=== PATIENT | female | born 1965 | race Caucasian/White ===

== ENCOUNTER → 2019-12-10 12:11 | Outpatient (CLI) | payer OTHER, SELFPAY | LOC: LABSPEC 12:16 | PROVIDERS: Referring Provider Ophthalmology; Visit Provider Ophthalmology | DX: H00.024 Hordeolum internum left upper eyelid (principal) | CPT/HCPCS: 87070; 87075; 87077; 87186; 87205 ==

== ENCOUNTER → 2021-02-06 14:07 | Outpatient (CLI) | payer BC, SELFPAY ==
[2021-02-06 18:26] LABS: CRP 7.17 mg/L (0.0-3.0)
[2021-02-08 16:09] LABS: Endomysial Antibody IgA Negative (Negative)
[2021-02-08 22:53] LABS: Immunoglobulin A 395 mg/dL (87-352); t-Transglutaminase IgA <2 U/mL (0-3)
== END ==
LOC: MTLAB 14:12
PROVIDERS: PCP Family Medicine; Referring Provider Internal Medicine Gastroenterology; Visit Provider Internal Medicine Gastroenterology
DX: R19.7 Diarrhea, unspecified (principal)
CPT/HCPCS: 36415; 82784; 83516; 86140; 86255

== ENCOUNTER 2021-05-02 14:48 | Outpatient (CLI) | payer BC, SELFPAY ==
[2021-05-02 16:09] LABS: Hematocrit 40.8 % (37-47); Hemoglobin 13.4 g/dL (12.0-15.0); Mean Corp Hgb Conc 32.8 g/dL (32-36); Mean Corpuscular Hgb 30.5 pg (27.0-32.0); Mean Corpuscular Volume 92.7 fL (81-99); Mean Platelet Vol. 8.8 fl (6.2-12.0); Platelet Count 389 K/mm3 (150-450); RBC Distribution Width CV 14.5 % (11.6-14.6); RBC Distribution Width SD 49.1 fl (35.1-43.9); White Blood Count 10.4 K/mm3 (4.4-11.0)
[2021-05-02 16:44] LABS: ALB/GLOB Ratio 0.9 RATIO (0.9-2.4); AST(SGOT) 26 U/L (15-37); Alanine Aminotransfer ALT/SGPT 33 U/L (13-56); Albumin, Serum 3.5 g/dL (3.2-5.0); Alkaline Phosphatase 74 U/L (45-117); Anion Gap 6 (5-15); BUN 9 mg/dL (7-18); CRP < 2.90 mg/L (0.0-3.0); Calcium,Total 8.8 mg/dL (8.5-10.1); Chloride 108 mmol/L (98-107); Creatinine, Serum 0.75 mg/dL (0.55-1.02); EST Glomerular Filtration Rate 85 mL/min (>60); Est Glom Filt Rate - Afr Amer 102 mL/min (>60); Globulin 3.7 g/dL (2.2-4.2); Glucose 95 mg/dL (74-106); Lipase 123 U/L (73-393); Potassium 3.4 mmol/L (3.5-5.1); Protein, Total 7.2 g/dL (6.4-8.2); Sodium Level 139 mmol/L (136-145)
== END 2021-05-02 23:59 | disposition home or self-care (01) ==
LOC: MTLAB 14:49
PROVIDERS: PCP Family Medicine; Referring Provider Internal Medicine Gastroenterology; Visit Provider Internal Medicine Gastroenterology
DX: R10.9 Unspecified abdominal pain (principal)
CPT/HCPCS: 36415; 80053; 83690; 85027; 86140